=== PATIENT | male | born 1960 | race Caucasian/White ===

== ENCOUNTER 2020-04-23 15:19 | Outpatient (REF) | payer OTHER, SELFPAY | END 2020-04-23 15:20 | disposition home or self-care (01) | LOC: HO.SH 15:19 | PROVIDERS: PCP Internal Medicine; Referring Provider Internal Medicine; Visit Provider Internal Medicine | DX: Z13.89 Encounter for screening for other disorder (principal) | CPT/HCPCS: 92700 ==

== ENCOUNTER 2020-07-04 10:16 | Outpatient (REF) | payer OTHER, SELFPAY | END 2020-07-04 10:17 | disposition home or self-care (01) | LOC: HO.HAP 10:16 | PROVIDERS: Visit Provider Internal Medicine | DX: Z13.89 Encounter for screening for other disorder (principal) ==

== ENCOUNTER 2020-07-13 11:49 | Outpatient (REF) | payer OTHER, SELFPAY | END 2020-07-13 11:50 | disposition home or self-care (01) | LOC: HO.HAP 11:49 | PROVIDERS: Visit Provider Internal Medicine | DX: Z13.89 Encounter for screening for other disorder (principal) ==

== ENCOUNTER 2020-10-26 14:03 | Outpatient (REF) | payer OTHER, SELFPAY ==
--- NOTE | ~2020-10-26 | CT_ITS ---
EXAMINATION: CT ABDOMEN AND PELVIS WITHOUT CONTRAST CLINICAL INFORMATION: Diverticulitis COMPARISON: Previous CT scan of the abdomen and pelvis February 2013 TECHNIQUE: Multidetector volumetric imaging was performed from the superior aspect of the liver through the pubic symphysis. Sagittal and coronal reformatted images were obtained on the technologist's workstation. This CT examination was performed using dose optimization techniques as appropriate, variously including the following: *Automated exposure control *Adjustment of mA and/or kV according to patient size (this includes techniques or standardized protocols for targeted exams where dose is matched to indication/reason for exam; i.e. extremities or head) *Use of iterative reconstruction technique DLP: 471 mGy-cm FINDINGS: LUNG BASES: The visualized lung bases are unremarkable. LIVER, GALLBLADDER, AND BILIARY TREE: The liver is normal in size, shape, and attenuation. No focal hepatic lesion or biliary ductal dilatation is present. The gallbladder is unremarkable with no evidence of radiopaque gallstones, gallbladder wall thickening, or obvious pericholecystic inflammatory changes. PANCREAS: Unremarkable. SPLEEN: Unremarkable. ADRENAL GLANDS: Unremarkable. KIDNEYS AND URETERS: The kidneys are normal in size, shape, and attenuation. No hydronephrosis, hydroureter, or calculi seen. No perinephric stranding. BLADDER: Unremarkable. GASTROINTESTINAL TRACT: There is diverticulosis of the colon. No evidence of diverticulitis is seen. The small and large bowel is otherwise unremarkable. The appendix is unremarkable. ABDOMINAL WALL: There is a small umbilical hernia containing fat. LYMPH NODES: Normal. VASCULAR: Unremarkable. PELVIC VISCERA: Unremarkable. OSSEOUS STRUCTURES: There are degenerative changes of the spine. CT/CT abdomen pelvis wo con IMPRESSION: Diverticulosis. No evidence of diverticulitis.
[2020-10-26] MEDS: Barium Sulfate Oral (Berry) 450 ML ORAL.SUSP 900 ML PO (16:06)
== END 2020-10-26 14:04 | disposition home or self-care (01) ==
LOC: HO.CT 14:03
PROVIDERS: PCP Internal Medicine; Visit Provider Internal Medicine
DX: K57.92 Diverticulitis of intestine, part unspecified, without perforation or abscess without bleeding (principal)
CPT/HCPCS: 74176

== ENCOUNTER 2022-09-29 06:29 | Day surgery (SDC) | payer OTHER, SELFPAY ==
--- NOTE | 2022-09-26 12:28 | P.CONAN_ITS ---
Documented by User: Jolanta Denton NP 09/26/22 12:29 HPI - Anesthesia Eval Consult details Narrative: 62yo M for Upper Endoscopy and Colonoscopy [facility] Past Medical History Medical History Diverticulitis GERD (gastroesophageal reflux disease) History of ETT PAC (premature atrial contraction) Tremor Surgical History Surgical History H/O colonoscopy H/O esophagogastroduodenoscopy H/O shoulder surgery Social History Social History Patient Tobacco Use Status: Former Tobacco user Are you DNR?: No Advance Directives: No Advance Directives Information Provided: Yes Recently lost weight without trying: No Meds Allergies Allergy/AdvReac Type Severity Reaction Status Date / Time No Known Allergies Allergy Verified 09/26/22 12:29 Home Medications Medication Instructions Recorded Confirmed Last Taken Type bupropion HCl 150 mg 24 hr tablet, 150 mg PO QAM 09/26/22 09/26/22 09/28/22 History extended release cholecalciferol (vitamin D3) 25 25 mcg PO DAILY 09/26/22 09/26/22 09/28/22 History mcg (1,000 unit) tablet omeprazole 20 mg capsule,delayed 20 mg PO DAILY 09/26/22 09/26/22 09/28/22 History release propranolol 20 mg tablet 20 mg PO BID 09/26/22 09/26/22 09/28/22 History Exam Exam Date and Time: September 26, 2022 122 Assessment and Plan Assessment Anesthesia Assessment: Chart Reviewed Documented by User: Alma Delia Torres MD 09/29/22 07:51 [facility] Past Medical History Medical History Diverticulitis GERD (gastroesophageal reflux disease) History of ETT PAC (premature atrial contraction) Tremor Surgical History Surgical History H/O colonoscopy H/O esophagogastroduodenoscopy H/O shoulder surgery History of Problems with Anesthesia: No Social History Social History Patient Tobacco Use Status: Former Tobacco user Are you DNR?: No Advance Directives: No Advance Directives Information Provided: Yes Recently lost weight without trying: No Meds Allergies Allergy/AdvReac Type Severity Reaction Status Date / Time No Known Allergies Allergy Verified 09/26/22 12:29 Home Medications Medication Instructions Recorded Confirmed Last Taken Type bupropion HCl 150 mg 24 hr tablet, 150 mg PO QAM 09/26/22 09/26/22 09/28/22 History extended release cholecalciferol (vitamin D3) 25 25 mcg PO DAILY 09/26/22 09/26/22 09/28/22 History mcg (1,000 unit) tablet omeprazole 20 mg capsule,delayed 20 mg PO DAILY 09/26/22 09/26/22 09/28/22 History release propranolol 20 mg tablet 20 mg PO BID 09/26/22 09/26/22 09/28/22 History Exam Airway Mallampati Class: II TM Dist: >3cm Neck ROM: Full Loose/Missing/Broken Teeth: No Heart: RRR Lungs: CTA Assessment and Plan Assessment Anesthesia Assessment: Anesthesia Plan Discussed Final Anesthetic Review History of Problems with Anesthesia: No NPO: Yes ASA Class: II Final Preanesthetic Review: Meds/Allgs Chart Reviewed, Consent Obtained/Reviewed and Anes Risks/Benef Reviewed Patient Risk: Low Procedure Risk: Intermediate Anesthetic Plan Anesthetic Plan: MAC: Disposition: Standard PACU
[2022-09-29 06:35] VITALS: BMI 26.4
[2022-09-29 06:36] VITALS: BP 152/76; PULSE 66; RESP 18; TEMP 36.8; O2SAT 98
[2022-09-29] MEDS: Lactated Ringers 1,000 ML 100 ML IVCONT (07:00)
[2022-09-29 08:29] VITALS: BP 150/90; PULSE 80; RESP 16; TEMP 36.4; O2SAT 96
--- NOTE | 2022-09-29 08:30 | PM.OP ---
Brief Operative Note Date of Service: 09/29/22 Pre-op diagnosis: Bunn's, Screening Post-op diagnosis: other (Same, Hiatal hernia, Gastric polyp, Colon polyp) Procedure: EGD with biopsies, Colonoscopy to the cecum and TI with bx/removal of polyp Surgeon: Yogesh Schroeder Anesthesia: MAC Was an Supplier Quality Manager used for this Procedure?: No Estimated blood loss (mL): 2.0 Pathology: other (A. Esophagus 38-39cm B. Gastric antral polyp C. Transverse colon polyp) Condition: stable Disposition: PACU
[2022-09-29 08:45] VITALS: BP 142/86; PULSE 72; RESP 16; TEMP 36.4; O2SAT 98
--- NOTE | 2022-09-29 13:13 | OP_ITS ---
DATE OF SERVICE: 09/29/2022 SURGEON: Yogesh Schroeder MD INDICATIONS: The patient presents for evaluation of gastroesophageal reflux, Bunn's esophagus, and colorectal cancer screening. Full consent has been obtained from him for both procedures, including risks of bleeding and perforation. PREOPERATIVE DIAGNOSIS: POSTOPERATIVE DIAGNOSIS: PROCEDURE PERFORMED: Esophagogastroduodenoscopy with biopsies and colonoscopy to the cecum and terminal ileum with biopsy and removal of polyp. ESTIMATED BLOOD LOSS: COMPLICATIONS: ANESTHESIA: Monitored anesthesia care. ASSISTANTS: SPECIMENS: PREOPERATIVE DIAGNOSES: Gastroesophageal reflux, history of Bunn's esophagus, and colorectal cancer screening. POSTOPERATIVE DIAGNOSES: Gastroesophageal reflux, history of Bunn's esophagus, and colorectal cancer screening, small hiatal hernia, small gastric polyp, small colon polyp, diverticulosis, and internal hemorrhoids. DESCRIPTION OF PROCEDURE: The patient was placed in the left lateral decubitus position. The Olympus video gastroscope was passed in the posterior oropharynx and upper esophagus under direct vision. The scope was passed slowly to the distal esophagus. The gastroesophageal junction appeared at 39 cm. Extending from this to 38 cm were small, less than 10 mm patches of Bunn's-appearing mucosa. The EG junction appeared to be irregular as well. There was no evidence of any esophagitis, masses, ulceration, nor any other lesions. The scope entered the stomach. There was a small hiatal hernia. The scope was advanced to the pylorus, and the duodenum was cannulated to the descending portion. The duodenum including the bulb appeared normal without mass or ulceration. The scope was withdrawn back in the stomach. The gastric antrum and body appeared normal other than approximately 3 or 4 mm polyp in the gastric antrum that was biopsied and completely removed. There was good peristalsis. The scope was retroflexed visualizing the proximal stomach carefully, which appeared normal, without any sign of mass or ulceration. The scope was straightened and withdrawn back in the esophagus. Multiple biopsies were obtained between 38 cm and 39 cm. Proximal to this, the esophageal mucosa appeared normal. The scope was withdrawn from the patient. He was turned around for the colonoscopy. The digital rectal exam revealed no abnormalities. The Olympus video pediatric colonoscope was entered into the rectum and advanced easily to the cecum. Once in the cecum, I did identify normal-appearing cecal pouch with appendiceal orifice, and a normal appearing ileocecal valve. The terminal ileum was cannulated and appeared normal. The scope was withdrawn back in the colon. The entire cecum and ileocecal valve appeared normal. The scope was slowly withdrawn assessing all mucosal surface carefully. Preparation was excellent. In the transverse colon was an approximately 4 mm or 5 mm polyp, which was biopsied and completed removed with a cold biopsy forceps. I did not visualize any other polyps, colitis, nor angiodysplasia. There was a mild amount of sigmoid diverticulosis. There was a diverticulum in the cecum as well. In the rectum, the scope was retroflexed visualizing small internal hemorrhoids, but no other pathology. The rectal mucosa appeared normal. The scope was straightened and withdrawn from the patient. He tolerated the procedures well and was returned to the recovery area in stable condition. IMPRESSION: 1. History of Bunn's esophagus, small hiatal hernia. 2. Small gastric polyp. 3. Small colon polyp. 4. Diverticulosis. 5. Internal hemorrhoids. PLAN: The results of the biopsies will be checked. I would recommend a repeat upper endoscopy in 3 years assuming there is no dysplasia within the Bunn's mucosa. He will continue his daily omeprazole. If the colon polyp is a tubular adenoma, I would recommend a followup colonoscopy in 5 years. If it is only hyperplastic, I would recommend a followup colonoscopy in 10 years. He was advised not to use any aspirin or NSAIDs for 1 week. He will see me on a p.r.n. basis but will call if he has any recurrent problems with abdominal pain and/or diverticulitis. MD MEGAN Lowe/SIOBHAN / [phone] PIETER
== END 2022-09-29 09:05 | disposition home or self-care (01) ==
PROVIDERS: PCP Internal Medicine; Visit Provider Internal Medicine
PROC: (CPT 45380; principal; 2022-09-29 07:30)
DX: Z12.11 Encounter for screening for malignant neoplasm of colon (principal); K63.5 Polyp of colon; K57.30 Diverticulosis of large intestine without perforation or abscess without bleeding; K64.8 Other hemorrhoids; K22.70 Barrett's esophagus without dysplasia; K21.9 Gastro-esophageal reflux disease without esophagitis; K29.50 Unspecified chronic gastritis without bleeding; K31.7 Polyp of stomach and duodenum; K44.9 Diaphragmatic hernia without obstruction or gangrene; I49.1 Atrial premature depolarization; R25.1 Tremor, unspecified; Z79.899 Other long term (current) drug therapy; Z87.891 Personal history of nicotine dependence
CPT/HCPCS: 45380; 43239; 88305; 88342

== ENCOUNTER 2024-01-20 14:19 | Outpatient (AMB) | payer OTHER, SELFPAY ==
--- NOTE | 2024-01-20 14:21 | A.OFFVIS_ITS ---
Vital Signs 01/20/24 14:22 Height 6 ft Weight 200 lb BMI 27.1 Intake Visit Reasons: Inguinal hernia Intake Note: This patient presents for an assessment for inguinal hernia. Patient c/o; reports bulge, reports pain. Auricular Detoxification Specialist Required: No Accompanied by: Self / Same As Patient Allergies No Known Allergies Allergy (Verified 01/20/24 14:29) Medication List - Last Reconciled 01/20/24 by Wade Mcdaniels MD bupropion HCl XL 150 mg PO QAM cholecalciferol (vitamin D3) 25 mcg PO DAILY omeprazole 20 mg PO DAILY propranolol 20 mg PO BID HPI HPI Inguinal hernia: Details: 63-year-old male referred for a left inguinal hernia. He has noticed this redu cible mass on his left groin for about 5 years now. He says that often times this appears to be bigger especially when he has been standing up for long periods of time. This also reduce this on and off He describes discomfort with this over the years He denies any GI complaints. He says he is healthy overall. [facility] Medical History (Updated 01/20/24 @ 14:44 by Wade Mcdaniels MD) Left inguinal hernia History of ETT GERD (gastroesophageal reflux disease) Tremor PAC (premature atrial contraction) Diverticulitis Surgical History H/O shoulder surgery H/O esophagogastroduodenoscopy H/O colonoscopy Social History Patient Tobacco Use Status: Former Tobacco user Review of Systems Const Denies chills and Denies fever(s) Card Denies chest pain, Denies dyspnea and Denies dyspnea on exertion Resp Denies cough, Denies dyspnea and Denies dyspnea on exertion GI Denies hematochezia and Denies change in bowel habits Denies hematuria and Denies difficulty urinating Musc Denies back pain and Denies limited range of motion Neuro Denies focal weakness and Denies convulsions Psych Denies depression and Denies mood swings Physical Exam Vital Signs: BMI result Body Mass Index 27.1 Const General: comfortable and no acute distress Orientation/consciousness: patient oriented x3 Neck Neck: Yes no lymphadenopathy Resp Auscultation: clear to auscultation bilaterally Cardio Rhythm: regular rhythm GI Other: Left inguinal hernia, partially reducible, nontender Palpation (GI): Soft to palpation, nontender and no guarding Neuro General: patient oriented x3 Assessment & Plan Assessment & Plan (1) Left inguinal hernia: Code(s): K40.90 - Unilateral inguinal hernia, without obstruction or gangrene, not specified as recurrent Category: Medical Plan I reviewed with him the technique of repair of the inguinal hernia with mesh. I discussed the risks including but not limited to bleeding, infections, recur rence, injury to other organs including bowel and the vas deferens, postop pain, as well as the benefits and alternatives. I explained to him what to expect postoperatively. Coding Level of Care Code New Pt Level 3 (16281) Diagnoses Left inguinal hernia K40.90
[2024-01-20 14:22] VITALS: BMI 27.1
== END 2024-01-20 14:50 | disposition home or self-care (01) ==
PROVIDERS: PCP Internal Medicine; Visit Provider Surgery
DX: K40.90 Unilateral inguinal hernia, without obstruction or gangrene, not specified as recurrent (principal)
CPT/HCPCS: 99204

== ENCOUNTER → 2024-01-20 14:19 | Outpatient (BNVA) | payer OTHER, SELFPAY | PROVIDERS: PCP Internal Medicine; Visit Provider Surgery | DX: K40.90 Unilateral inguinal hernia, without obstruction or gangrene, not specified as recurrent (principal) | CPT/HCPCS: 99202 ==

== ENCOUNTER 2024-03-09 06:00 | Day surgery (SDC) | payer OTHER, SELFPAY ==
[2024-03-07 11:26] VITALS: BMI 27.1
--- NOTE | 2024-03-08 12:53 | HO.ANESPROP2 ---
HPI - Anesthesia Eval Consult details Narrative: 63yo M for Left Hernia Inguinal Reducible with mesh Medically opitimized per PCP [facility] Active Problems Active Problems: All Active Problems Left inguinal hernia (Acute) Past Medical History Medical History Left inguinal hernia History of ETT GERD (gastroesophageal reflux disease) Tremor PAC (premature atrial contraction) Diverticulitis Surgical History Surgical History H/O shoulder surgery H/O esophagogastroduodenoscopy H/O colonoscopy History of Problems with Anesthesia: No Social History Social History Comment: counts correct Patient Tobacco Use Status: Former Tobacco user Use of substances other than those prescribed or required for medical reasons: No Have you been hit, kicked, punched, or otherwise hurt by someone within the past year? If so, by whom?: No Are you DNR?: No Advance Directives: No Advance Directives Information Provided: Yes Recently lost weight without trying: No Nutrition Risks: No Nutritional Risk Poor oral hygiene: No Meds Allergies Allergy/AdvReac Type Severity Reaction Status Date / Time No Known Allergies Allergy Verified 03/09/24 06:13 Home Medications ?Medication ?Instructions ?Recorded ?Confirmed ?Last Taken ?Type cholecalciferol (vitamin D3) 25 25 mcg PO DAILY 09/26/22 03/09/24 03/08/24 History mcg (1,000 unit) tablet omeprazole 20 mg capsule,delayed 20 mg PO DAILY 09/26/22 03/09/24 03/09/24 History release Exam Height,Weight and Vital Signs: Height 6 ft Weight 90.718 kg Assessment and Plan Assessment Anesthesia Assessment: Chart Reviewed Final Anesthetic Review History of Problems with Anesthesia: No
[2024-03-09] VITALS (10 sets, daily range): BP systolic 151–178; BP diastolic 83–101; PULSE 79–92; RESP 16–18; TEMP 36.1–36.5; O2SAT 94–99; BMI 26.9
[2024-03-09] MEDS: Lactated Ringers 1,000 ML 100 ML IVCONT (06:37)
--- NOTE | 2024-03-09 07:20 | P.CONAN_ITS ---
[facility] Active Problems Active Problems: All Active Problems Left inguinal hernia (Acute) Past Medical History Medical History Left inguinal hernia History of ETT GERD (gastroesophageal reflux disease) Tremor PAC (premature atrial contraction) Diverticulitis Functional capacity: independent ambulation Family History Family history of problems with anesthesia: No Surgical History Surgical History H/O shoulder surgery H/O esophagogastroduodenoscopy H/O colonoscopy History of Problems with Anesthesia: No Social History Social History Patient Tobacco Use Status: Former Tobacco user Use of substances other than those prescribed or required for medical reasons: No Have you been hit, kicked, punched, or otherwise hurt by someone within the past year? If so, by whom?: No Are you DNR?: No Advance Directives: No Advance Directives Information Provided: Yes Recently lost weight without trying: No Nutrition Risks: No Nutritional Risk Poor oral hygiene: No Meds Allergies Allergy/AdvReac Type Severity Reaction Status Date / Time No Known Allergies Allergy Verified 03/09/24 06:13 Active Medications: Current Medications Lactated Ringer's (Lr) 1,000 mls @ 100 mls/hr IVCONT .Q10H JAIRO Last Admin: 03/09/24 06:37 Dose: 100 mls/hr Home Medications ?Medication ?Instructions ?Recorded ?Confirmed ?Last Taken ?Type cholecalciferol (vitamin D3) 25 25 mcg PO DAILY 09/26/22 03/09/24 03/08/24 History mcg (1,000 unit) tablet omeprazole 20 mg capsule,delayed 20 mg PO DAILY 09/26/22 03/09/24 03/09/24 History release Exam Height,Weight and Vital Signs: Height 6 ft Weight 89.811 kg Last Vital Signs Temp 97.0 F 03/09/24 06:36 Pulse 79 03/09/24 06:36 Resp 16 03/09/24 06:36 BP 151/97 H 03/09/24 06:36 Pulse Ox 96 03/09/24 06:36 O2 Del Method Room Air 03/09/24 06:36 Airway Mallampati Class: II TM Dist: >3cm Neck ROM: Full Heart: RRR Lungs: CTA Assessment and Plan Assessment Anesthesia Assessment: Anesthesia Plan Discussed Final Anesthetic Review Family History of Problems with Anesthesia: No History of Problems with Anesthesia: No NPO: Yes ASA Class: II Final Preanesthetic Review: Meds/Allgs Chart Reviewed, Consent Obtained/Reviewed and Anes Risks/Benef Reviewed Patient Risk: Low Procedure Risk: Low Anesthetic Plan Disposition: Standard PACU
--- NOTE | 2024-03-09 07:22 | MHC.SHP ---
Pre-Procedural Eval Section A - 24 Hr Update-Section A only Date of Service: 03/09/24 Section B - Complete if H&P > 30 days Chief Complaint: Unilateral inguinal hernia, without obstruction Details of Present Illness: Has a reducible left inguinal hernia for about 5 years Relevant Family History (Specify if Yes): No Relevant Social History: None Present Medications: see Short Stay Collaborative assessment Medical History: Significant History (GERD, history of PACs) Allergies: Allergies Allergy/AdvReac Type Severity Reaction Status Date / Time No Known Allergies Allergy Verified 03/09/24 06:13 Review of Systems Sugical H&P ROS: Negative: Constitution, Cardiovascular, Respiratory, Neurological, Psychiatric, Hem-Onc, Allergic/Immunologic, Gastrointestinal, Genitourinary, Musculoskeletal, Integumentary, Endocrine and Eyes/Ears/Nose/Throat Exam Surgical H&P Exam: Normal: Heart and Normal: Lungs and Significant Findings: Abdomen (Has reducible left inguinal hernia) Plan Diagnosis/Plan: Unchanged I have reviewed the history and physical and performed a pertinent physical examination on my patient. No changes have occurred unless specified. Time Spent With Patient Time: Total time managing care of this patient today ____ minutes.
--- NOTE | 2024-03-09 08:18 | W.PM.OPN ---
Operative Note Operative Note Date of Service: 03/09/24 Narrative: Preop diagnosis: Left inguinal hernia, reducible Postop diagnosis: Left inguinal hernia, reducible, indirect Procedure: Left inguinal hernia repair with mesh Surgeon: Wade Mcdaniels MD assistant real estate manager: ILA Bauer The patient is a 63-year-old male with a reducible mass on the left groin consistent with a left inguinal hernia. He understood the technique of the planned procedure for repair as well as the risks, benefits, and alternatives. He was brought to the operating room. He was placed supine under general anesthesia via laryngeal mask airway. The left groin was prepped and draped in the usual sterile fashion. A surgical time-out was done. The patient received cefazolin 2 g IV preoperatively I infiltrated my planned line of incision with lidocaine 1%. I made a short incision along an imaginary line from the anterior superior iliac spine to the pubic ramus using blade 15. This was carried down with electrocautery through the full-thickness of the skin and subcutaneous fat down to the fascia. The external oblique aponeurosis was seen. This was carefully and bluntly defined with gauze until was able to visualize the external ring. I made an incision on the external oblique aponeurosis overlying the canal with a blade 15. This was extended inferomedially to connect with the external ring using an open tip pair of scissors. I bluntly dissected the underside of the aponeurosis. I applied sterile on the divided edges. I did blunt dissection on the spermatic cord and its contents with my index finger until was able to pass a Bertha drain around this. This Bertha drain was used for retraction I identified the structures in the spermatic cord. I was able to identify the vas deferens and the accompanying vessels. This were then protected during the rest of the dissection. The sac was seen. This was dissected off of the rest of the cord contents until this was reduced through the internal ring. This was therefore an indirect hernia. There was no bowel involvement in the hernia I reinforced the internal ring with a medium-sized Prolene plug. The plug was secured to the shelving edge of the inguinal meant laterally and the internal oblique superiorly and medially using the inner leaves of the plug with Prolene 2 sutures. I reinforced the entire floor of the canal with a keyhole mesh. The tails of the mesh were passed around the cord at the level of the internal ring and were secured together with Prolene 2 sutures. The mesh was secured to the pubic ramus, the shelving edge of the inguinal meant laterally and the internal oblique superiorly medially using Prolene 2 sutures. The Bertha drain was removed We observed for hemostasis. Once hemostasis was confirmed, we irrigated. I closed the external oblique aponeurosis with a running Polysorb 2-0 stitch to re-create the external ring The thick subcutaneous layer was reapposed with Polysorb 3-0 sutures. Skin closure was achieved with Polysorb 4-0 subcuticular running stitch The incision was infiltrated with Marcaine 0.5% for postop analgesia. Dressings were applied. The procedure was completed The patient tolerated the procedure well. There were no immediate complications. Initial and final counts of sponges and instruments were correct. Estimated blood loss about 5 cc The patient was extubated without difficulty and transferred to the recovery room with stable vital signs.
--- NOTE | 2024-03-09 09:06 | HO.POSTANES ---
Post Anesthesia Evaluation Post Anesthesia Evaluation Date of Service: 03/09/24 Vital Signs: Vital Signs Temp Pulse Resp BP Pulse Ox O2 Del Method 03/09/24 08:54 85 16 155/94 H 94 Room Air 03/09/24 08:49 84 17 165/88 H 96 Room Air 03/09/24 08:44 89 16 160/83 H 96 Room Air 03/09/24 08:39 97.2 F 83 16 166/100 H 94 Room Air 03/09/24 06:36 97.0 F 79 16 151/97 H 96 Room Air Anesthesia: General LMA Mental Status: Awake Pain Control: Satisfactory Nausea/Vomiting: None Hydration: Adequate Anesthesia-Related Issues: No Anes. Related Issues
[2024-03-09] MEDS: ondansetron HCL 4 MG/2 ML VIAL IVPUSH (09:38)
[2024-03-09] MEDS: Haloperidol Lactate 5 MG/ML VIAL 1 MG IVPUSH (10:13)
== END 2024-03-09 11:00 | disposition home or self-care (01) ==
PROVIDERS: PCP Internal Medicine; Visit Provider Surgery
PROC: (CPT 49505; principal; 2024-03-09 07:30)
DX: K40.90 Unilateral inguinal hernia, without obstruction or gangrene, not specified as recurrent (principal); K21.9 Gastro-esophageal reflux disease without esophagitis; Z87.19 Personal history of other diseases of the digestive system; R25.1 Tremor, unspecified; I49.1 Atrial premature depolarization; Z79.899 Other long term (current) drug therapy; Z87.891 Personal history of nicotine dependence; Z98.890 Other specified postprocedural states
CPT/HCPCS: 49505; C1781; J0690; J1100; J1630; J2250; J2405; J2704; J2795; J3010

== ENCOUNTER → 2024-03-09 06:00 | Outpatient (BNV) | payer OTHER, SELFPAY | PROVIDERS: PCP Internal Medicine; Visit Provider Surgery | DX: K40.90 Unilateral inguinal hernia, without obstruction or gangrene, not specified as recurrent (principal) | CPT/HCPCS: 49505 ==

== ENCOUNTER 2024-03-21 14:27 | Outpatient (AMB) | payer OTHER, SELFPAY ==
--- NOTE | 2024-03-21 14:53 | MHC.OFFVIS ---
Intake Visit Reasons: S/P LIH w/mesh Intake Note: This patient presents for post-op assessment status post left inguinal hernia repair with mesh. Pt c/o; reports no complaints. 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 He tolerated procedure well. He currently denies significant complaints. PFSH Medical History Left inguinal hernia History of ETT GERD (gastroesophageal reflux disease) Tremor PAC (premature atrial contraction) Diverticulitis Surgical History H/O shoulder surgery H/O esophagogastroduodenoscopy H/O colonoscopy Social History Comment: counts correct Patient Tobacco Use Status: Former Tobacco user Review of Systems Const Denies chills and Denies fever(s) Card Denies chest pain, Denies dyspnea and Denies dyspnea on exertion Resp Denies cough, Denies dyspnea and Denies dyspnea on exertion GI Denies hematochezia and Denies change in bowel habits Denies hematuria and Denies difficulty urinating Musc Denies back pain and Denies limited range of motion Neuro Denies focal weakness and Denies convulsions Psych Denies depression and Denies mood swings Physical Exam Const General: comfortable and no acute distress Resp Effort & Inspection: normal respiratory effort GI Other: Left inguinal hernia repair site is well healed, not infected, repair intact Assessment & Plan Assessment & Plan (1) Left inguinal hernia: Code(s): K40.90 - Unilateral inguinal hernia, without obstruction or gangrene, not specified as recurrent Category: Medical Plan: Status post repair with mesh. He is doing well. His incision is well healed. The repair site is intact. I advised him to avoid lifting anything more than 20 lb for about 2 more weeks. He can otherwise follow up on a p.r.n. basis. Coding Level of Care Code Global (17215) Diagnoses Left inguinal hernia K40.90
== END 2024-03-21 15:09 | disposition home or self-care (01) ==
PROVIDERS: PCP Internal Medicine; Visit Provider Surgery
DX: K40.90 Unilateral inguinal hernia, without obstruction or gangrene, not specified as recurrent (principal)
CPT/HCPCS: 99024

== ENCOUNTER → 2024-03-21 14:27 | Outpatient (BNVA) | payer OTHER, SELFPAY | PROVIDERS: PCP Internal Medicine; Visit Provider Surgery | DX: Z48.815 Encounter for surgical aftercare following surgery on the digestive system (principal); Z87.19 Personal history of other diseases of the digestive system; Z98.890 Other specified postprocedural states | CPT/HCPCS: 99212 ==

== ENCOUNTER 2024-06-02 10:47 | Outpatient (AMB) | payer OTHER, SELFPAY ==
--- NOTE | 2024-06-02 10:48 | MHC.OFFVIS ---
Vital Signs 06/02/24 10:52 Height 6 ft Weight 199 lb BMI 27.0 Intake Visit Reasons: wound check, Hx LIH repair Intake Note: This patient presents for wound check, History left inguinal hernia repair. Pt c/o; reports wound check. Social Science Manager Required: No Accompanied by: Self / Same As Patient Allergies No Known Allergies Allergy (Verified 06/02/24 10:53) Medication List - Last Reconciled 06/02/24 by Wade Mcdaniels MD cholecalciferol (vitamin D3) 25 mcg PO DAILY omeprazole 20 mg PO DAILY oxycodone-acetaminophen 5-325 mg (Percocet) 1 tab PO Q4-6H PRN HPI HPI wound check, Hx LIH repair: Details: He had undergone repair of a left inguinal hernia with mesh last February,. He had been doing well. However, he had noted some discoloration of part of the scar and he wanted this checked. He otherwise feels well. He denies any complaints. He says he is happy with the outcome. [facility] Medical History (Updated 06/02/24 @ 11:01 by Wade Mcdaniels MD) Scar conditions/skin fibrosis Left inguinal hernia History of ETT GERD (gastroesophageal reflux disease) Tremor PAC (premature atrial contraction) Diverticulitis Surgical History H/O shoulder surgery H/O esophagogastroduodenoscopy H/O colonoscopy Social History Comment: counts correct Patient Tobacco Use Status: Former Tobacco user Review of Systems Const Denies chills and Denies fever(s) Card Denies chest pain at rest GI Denies abdominal pain Denies difficulty urinating Physical Exam Vital Signs: BMI result Body Mass Index 27.0 Const General: comfortable and no acute distress Resp Effort & Inspection: normal respiratory effort GI Other: Left inguinal hernia repair site well healed, some dark discoloration on the lateral area of the incision resembling scar tissue, repair site however intact, no evidence of any infection Palpation (GI): Soft to palpation, not firm and nontender Assessment & Plan Assessment & Plan (1) Scar conditions/skin fibrosis: Code(s): L90.5 - Scar conditions and fibrosis of skin Category: Medical Plan: He wanted the area of discoloration on the hernia repair site checked. This appears to be a scar formation. I assured him that this does not represent any significant pathology. The repair site is otherwise intact. He can therefore follow up on a p.r.n. basis. Coding Level of Care Code Est Pt Level 2 (07085) Diagnoses Scar conditions/skin fibrosis L90.5
[2024-06-02 10:52] VITALS: BMI 27.0
--- OUTSIDE RECORDS SUMMARY | 2024-06-08 01:43 | XMS_ITS ---
Author Organization Yogesh Roberts DO, FACP Address [address] [place] [address] [phone] Care Team Providers Care Agency Development Manager Name Role Phone Yogesh Roberts Primary Care Provider [phone] ALLERGIES No Known Allergies REASON FOR VISIT pre-op, cataract OS MEDICATIONS Medication SIG (Take, Route, Frequency, Duration) Notes Start Date End Date Status Omeprazole 20 MG 1 capsule 30 minutes before morning meal Orally Once a day Active Propranolol HCl 20 MG 1 tablet as needed Orally Once a day Active Meloxicam 15 MG 1 tablet as needed O rally Once a day Active Viagra 50 MG 1 tablet as needed O rally Once a day 12/09/2015 Active Vitamin D3 25 MCG (1000 UT) 1 tablet Ora lly Once a day Active LORazepam 1 MG 1 tablet as needed O rally Twice a day 10/25/2022 Active SOCIAL HISTORY Tobacco Use: Social History Observation Description Date Details (start date - stop date) Never Smoker NA - NA Sex Assigned At : Social History Observation Description Sex Assigned At Unknown Tobacco Use/Smoking Question Answer Notes Patient is a nonsmoker Additional Findings: Tobacco Non-User Cu rrent non-smoker, currently using no form of tobacco Alcohol Screen Question Answer Notes Did you have a drink contain ing alcohol in the past year? Yes How often did you have a dri nk containing alcohol in the past year? 2 to 3 times a week (3 points) How many drinks did you have on a typical day when you were drinking in the past year? 1 or 2 drinks (0 point) How often did you have 6 or more drinks on one occasion in the past year? Never (0 point) Points 3 Interpretation Negative PROBLEMS Problem Type ICD Code Onset Dates Problem Status W/U Status Risk SNOMED Code Notes Problem Cataract of left eye, unspecified cataract type (H26.9) Active confirmed 339071887 VITAL SIGNS BMI 26.99 kg/m2 05/17/2024 Blood pressure systolic 144 mm Hg 05/17/20 24 Blood pressure diastolic 80 mm Hg 024 Height 72 in 05/17/2024 Weight 199 lbs 05/17/2024 Encounters Encounter Location Date Provider Diagnosis Yogesh Roberts , FACP [address] [place] [address] [id number] 05/17/2024 Yogesh Roberts Cataract of left eye , unspecified cataract type H26.9 ; 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 ; Tremor R25.1 and Diverticulosis of large intestine without hemorrhage K57.30 ASSESSMENTS Encounter Date Diagnosis Assessment Notes Treatment Notes Treatment Clinical Notes 05/17/2024 Cataract of left eye , unspecified cataract type (ICD-10 - H26.9) Yamilka is an appropriate candidate for the proposed surgical procedure and is medically cleared for surgery 05/17/2024 Bunn's esophagus without dysplasia (ICD-10 - K22.70) 05/17/2024 Tremor (ICD-10 - R25.1) 05/17/2024 Diverticulosis of large intestine without hemorrhage (ICD-10 - K57.30) PLAN OF TREATMENT Medication Medication Name Sig Start Date Stop Date Notes Omeprazole 20 MG 1 capsule 30 minutes before morning meal Orally Once a day Propranolol HCl 20 MG 1 tablet as needed Orally Once a day Meloxicam 15 MG 1 tablet as needed O rally Once a day Viagra 50 MG 1 tablet as needed O rally Once a day 12/09/2015 Vitamin D3 25 MCG (1000 UT) 1 tablet Orally Once a day LORazepam 1 MG 1 tablet as needed O rally Twice a day 10/25/2022 Treatment Notes Assessment Notes Cataract of left eye, unspec ified cataract type Yamilka is an appropriate candidate for the proposed surgical procedure and is medically cleared for surgery Next Appt Details Follow Up: 6 Months, Reason: H&P Provider Name:Yogesh Gutierrez elizabeth, 11/15/2024 11:15:00 AM, [address] [place] [address], [phone], Progress Notes * Examination Category Sub-Category Detail Notes General Examination GENERAL APPEARANCE: in no ac tejon distress, well developed, well nourished HEAD: normocephalic, atrau matic HEART: no murmurs, regular rate and rhythm, S1, S2 normal LUNGS: clear to auscultatio n bilaterally ABDOMEN: normal, bowel sounds present, soft, nontender, nondistended SKIN: warm and dry EXTREMITIES: no edema PSYCH: alert, oriented, cog nitive function intact
--- OUTSIDE RECORDS SUMMARY | 2024-06-08 01:44 | XMS_ITS ---
Author Organization Yogesh Roberts DO, FACP Address [address] [place] [address] [phone] Care Team Providers Care Certified Dialysis Technician Name Role Phone Yogesh Roberts Primary Care Provider [phone] REASON FOR VISIT Message Encounters Encounter Location Date Provider Diagnosis Yogesh Roberts DO, [facility] [address] [place] [address] [id number] 02/02/2024 Yogesh Roberts PLAN OF TREATMENT Next Appt Details Provider Name:Yogesh johnson, 11/15/2024 11:15:00 AM, [address] [place] [address], [phone],
--- OUTSIDE RECORDS SUMMARY | 2024-06-08 01:44 | XMS_ITS ---
Author Organization Yogesh Roberts DO, FACP Address [address] [place] [address] [phone] Care Team Providers Care Park Interpretive Specialist Name Role Phone Yogesh Roberts Primary Care Provider [phone] REASON FOR VISIT Pre op physical Encounters Encounter Location Date Provider Diagnosis Yogesh Roberts DO, FACP [address] [place] [address] [id number] 04/21/2024 Yogesh Roberts PLAN OF TREATMENT Next Appt Details Provider Name:Yogesh johnson, 11/15/2024 11:15:00 AM, [address] [place] [address], [id number],
--- OUTSIDE RECORDS SUMMARY | 2024-06-08 01:44 | XMS_ITS | Patient Health Record ---
Author Organization [facility] Address [address] [place] [phone] Care Team Providers Care Supervisor Melt House Name Role Phone Yogesh Berg DO Primary Care Provider Unavail able Yogesh Schroeder Unavailable [phone] ALLERGIES No Known Allergies REASON FOR REFERRAL No Information MEDICATIONS Medication SIG (Take, Route, Frequency, Duration) Notes Start Date End Date Status Vitamin D3 25 MCG (1000 UT) 1 capsule Or ally Once a day Active Propranolol HCl 20 MG 1 tablet Orally On ce a day Active Omeprazole 20 MG 1 capsule 30 minutes before morning meal Orally Once a day 06/08/2020 Active IMMUNIZATIONS Vaccine Route Administration Date Status Comme nts Influenza Unknown 03/30/2019 Administered Influenza Unknown 05/09/2020 Administered Influenza Unknown 03/29/2022 Administered SOCIAL HISTORY Tobacco Use: Social History Observation Description Date Details (start date - stop date) Former Smoker NA - NA Sex Assigned At : Social History Observation Description Sex Assigned At Unknown Tobacco Use/Smoking Question Answer Notes Patient is a former smoker When did you start smoking? 15 years ago When did you stop smoking? 35 year ago How long has it been since y ou last smoked? 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 (55494365) Problem Diverticulosis of large intestine without perforation or abscess without bleeding (K57.30) Active confirmed Diverticul ar disease of colon (299263910) Problem Gastroesophageal reflux disease (K21.9) Active confirmed Gastroesophagea l reflux disease (125473160) Problem Gastroesophageal reflux disease without esophagitis (K21.9) Active confirmed 424640264 Problem Gastroesophageal reflux disease, esophagitis presence not specified (K21.9) Active confirmed 799022422 Problem Hiatal hernia (K44.9) Active confirmed Hiatal hernia (94310737) Problem Bunn esophagus (K22.70) Active confirmed Bunn esophag us (573575991) PLAN OF TREATMENT Pending Test Test Name Order Date US ABD 03/13/2020 Future Test Test Name Order Date COLONOSCOPY 03/24/2013 UPPER GI ENDOSCOPY 03/13/2020 UPPER GI ENDOSCOPY 08/05/2022 COLONOSCOPY 08/05/2022 Insurance Providers Payer Name Payer Address Payer Phone Subscriber Number Group Number Insured Name Patient Relationship to Insured Coverage [place] [address] [id number] NAOMI HOLLEY Self - patient is the insured MEDICAL (GENERAL) HISTORY Medical History History ICD Code Denies LA,DM,CVA,Lung disease,renal dise ase Diverticulitis-episodes bega n 2006-has had at least 4 or 5 episodes per his recollection-he has not required hospitalization nor surgery. His last CT scan of the abdomen was in 2020 and was negative for any sign of diverticulitis at that time Colonoscopy 06/[address] Johnson neg except for diverticulosis PAC - Benign Heart Rythmn Negative colonoscopy in 03/2013 Tremor Having an ETT in 06/2020 GERD--EGD in 02/2020 with a s mall hiatal hernia and small area of Bunn's esophagus--biopsies were negative for dysplasia; gastric biopsies were negative for H. pylori Neg abdominal ultrasound in 02/2020 Surgical History Surgery Date(Month/Year) Left Shoulder surgery x 2 01/24/2020
--- OUTSIDE RECORDS SUMMARY | 2024-06-08 01:44 | XMS_ITS | Patient Health Record ---
Author Organization Yogesh Roberts DO, FACP Address [address] [place] [address] [phone] Care Team Providers Care Continuous Churn Buttermaker Name Role Phone Yogesh Roberts Primary Care Provider [phone] ALLERGIES No Known Allergies REASON FOR REFERRAL Reason Left inguinal hernia Diagnosis 1 Left inguinal hernia (K40.90) Referral Organization Yogesh Keating O, FACP Referring Provider First Name Yogesh Referring Provider Last Name Armando Referring Provider Speciality Internal M edicine Referred Provider Wade Mcdaniels Referred Provider Specialty General Surg titi Referral Priority Routine Referral Appointment Date 01/14/2024 MEDICATIONS Medication SIG (Take, Route, Frequency, Duration) Notes Start Date End Date Status LORazepam 1 MG 1 tablet as needed O rally Twice a day 10/25/2022 Active Omeprazole 20 MG 1 capsule 30 [...] tablet Ora lly Once a day Active IMMUNIZATIONS Vaccine Route Administration Date Status Comme nts Td (adult) Unknown 04/22/2006 Administered Influenza Unknown 03/13/2014 Administered Influenza Quad IM Intramuscular 03/14/2015 Administered TDaP Unknown 07/05/2015 Administered Influenza Quad IM Intramuscular 03/28/2016 Administered Influenza Quad IM Intramuscular 04/02/2017 Administered Influenza Quad IM Intramuscular 04/13/2018 Administered COVID-19 Moderna Bivalent Unknown 04/15/2022 Administer ed Influenza Quad Unknown 04/15/2022 Administered Influenza Quad Unknown 04/02/2023 Administered SOCIAL HISTORY Tobacco Use: Social History [...] W/U Status Risk SNOMED Code Notes Problem Bunn's esophagus without dysplasia (K22.70) Active confirmed 901383909 Problem Diverticulosis of large intestine without hemorrhage (K57.30) Active confirmed 806657525 Problem SVT (supraventricular tachycardia) (I47.1) Active confirmed 3929351 Problem Gastroesophageal reflux disease, esophagitis presence not specified (K21.9) Active confirmed 178467675 Problem Tremor (R25.1) Active confirmed 1600742 4 Problem Hearing loss, bilateral (H91.93) Active confirmed 89107350 Problem Cataract of left eye, unspecified cataract type (H26.9) Active confirmed 448135985 Problem Allergic rhinitis, unspecified seasonality, unspecified trigger (J30.9) Active confirmed 75693844 Problem Diverticulitis (K57.92) Active confirmed 747197659 Problem Leukocytosis, unspecified (D72.829) Active confirmed 314463278 VITAL SIGNS Blood pressure diastolic 80 mm Hg 05/17/2024 Height 72 in 05/17/2024 Blood pressure systolic 144 mm Hg 05/17/2024 Weight 199 lbs 05/17/2024 BMI 26.99 kg/m2 05/17/2024 Encounters Encounter Location Date Provider Diagnosis Yogesh Roberts DO, FACP [address] [place] [address] [id number] 05/17/2024 Yogesh Roberts Cataract of left eye , unspecified cataract type H26.9 ; 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 ; Tremor R25.1 and Diverticulosis of large intestine without hemorrhage K57.30 Yogesh Roberts DO, FACP [address] [place] [address] [id number] 11/13/2023 Yogesh Roberts DO, [address] [id number] 12/05/2023 Yogesh Roberts DO, [address] [id number] 02/02/2024 Yogesh Roberts DO, [address] [id number] 09/29/2023 Yogesh Roberts Bronchitis J40 ; Jayro mor R25.1 ; 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 ; Pain in right shoulder M25.511 and Diverticulosis of large intestine without hemorrhage K57.30 Yogesh Roberts DO, [address] [id number] 01/05/2024 Yogesh Roberts Left inguinal hernia K40.90 ; Gastroesophageal reflux disease, esophagitis presence not specified K21.9 ; Diverticulosis of large intestine without hemorrhage K57.30 and Prostate cancer screening Z12.5 Yogesh Roberts DO, [address] [id number] 06/22/2023 Yogesh Roberts DO, [address] [id number] 11/12/2023 Yogesh Roberts DO, [address] [id number] 12/31/2023 Yogesh Roberts DO, [address] [id number] 01/04/2024 Yogesh Roberts DO, [address] [id number] 01/27/2024 Yogesh Roberts Leukocytosis, unspecified D72.829 Yogesh Roberts DO, [address] [id number] 04/21/2024 Yogesh Roberts ASSESSMENTS Encounter Date Diagnosis Assessment Notes Treatment Notes Treatment Clinical Notes 05/17/2024 Bunn's esophagus without dysplasia (ICD-10 - K22.70) 05/17/2024 Cataract of left eye , unspecified cataract type (ICD-10 - H26.9) Aymilka is an appropriate candidate for the proposed surgical procedure and is medically cleared for surgery 09/29/2023 Bronchitis (ICD-10 - J40) 09/29/2023 Tremor (ICD-10 - R25.1) 01/05/2024 Left inguinal hernia (ICD-10 - K40.90) 01/05/2024 Gastroesophageal reflux disease, esophagitis presence not specified (ICD-10 - K21.9) 01/27/2024 Leukocytosis, unspecified (ICD-10 - D72.829) 05/17/2024 Tremor (ICD-10 - R25.1) 09/29/2023 Bunn's esophagus without dysplasia (ICD-10 - K22.70) 01/05/2024 Diverticulosis of large intestine without hemorrhage (ICD-10 - K57.30) 05/17/2024 Diverticulosis of large intestine without hemorrhage (ICD-10 - K57.30) 09/29/2023 Pain in right should er (ICD-10 - M25.511) 01/05/2024 Prostate cancer screening (ICD-10 - Z12.5) 09/29/2023 Diverticulosis of large intestine without hemorrhage (ICD-10 - K57.30) PLAN OF TREATMENT Next Appt Details Provider Name:Yogesh johnson, 11/15/2024 11:15:00 AM, [address] [place] [address], [phone], Insurance Providers Payer Name Payer Address Payer Phone Subscriber Number Group Number Insured Name Patient Relationship to Insured Coverage Start Date Coverage End Date [facility] [address] [place] [phone] [id number] [facility] [id number] Mario Cat Self - patient is the insured MEDICAL (GENERAL) HISTORY Medical History History ICD Code diverticulosis diverticulitis renal lithiasis gastroesophageal reflux disease (GERD) SVT (supraventricular tachycardia) I47.1 Allergic rhinitis, unspecified seasonali ty, unspecified trigger J30.9 Tremor R25.1 Gastroesophageal reflux disease, esophag itis presence not specified K21.9 Bunn's esophagus Surgical History Surgery Date(Month/Year) tonsillectomy vasectomy shoulder arthroscopy, left herniorraphy, left inguinal 02/2024
--- OUTSIDE RECORDS SUMMARY | 2024-06-08 01:44 | XMS_ITS ---
Author Organization [facility] Address [address] [place] [phone] Care Team Providers Care Brim Pouncer Name Role Phone Yogesh Roberts DO Primary Care Provider Unavail able Yogesh Schroeder Unavailable [phone] REASON FOR VISIT recalls? Encounters Encounter Location Date Provider Diagnosis [facility] [address] [place] [phone] 02/26/2023 Yogesh Schroeder PLAN OF TREATMENT No Information
== END 2024-06-02 10:55 | disposition home or self-care (01) ==
PROVIDERS: PCP Internal Medicine; Visit Provider Surgery
DX: L90.5 Scar conditions and fibrosis of skin (principal)
CPT/HCPCS: 99024

== ENCOUNTER → 2024-06-02 10:47 | Outpatient (BNVA) | payer OTHER, SELFPAY | PROVIDERS: PCP Internal Medicine; Visit Provider Surgery | DX: Z09 Encounter for follow-up examination after completed treatment for conditions other than malignant neoplasm (principal); L90.5 Scar conditions and fibrosis of skin; Z98.890 Other specified postprocedural states | CPT/HCPCS: 99212 ==

== ENCOUNTER 2024-11-15 11:18 | Outpatient (AMB) | payer OTHER, SELFPAY ==
--- NOTE | 2024-11-15 11:28 | MHC.PC.OV ---
Vital Signs 11/15/24 11:29 Height 6 ft Weight 208 lb BMI 28.2 BP 146/71 H Respiration 14 Pulse Source Pulse Oximeter Temp 98.5 F Temp Source Temporal Artery Scan Pulse Oximetry (%) 99 Oxygen Delivery Method Room Air Intake Visit Reasons: physical Manager Income Tax Required: No Accompanied by: Self / Same As Patient Allergies No Known Allergies Allergy (Verified 11/15/24 13:07) Medication List - Last Reconciled 11/15/24 by Kaden Roth MD apixaban (Eliquis) 5 mg PO BID cholecalciferol (vitamin D3) 25 mcg PO DAILY metoprolol succinate ER mg PO omeprazole 20 mg PO DAILY 90 days Tobacco use date assessed: 11/15/24 Dental Screening Dental Screen Date: 11/15/24 Did you have a dental visit in the last 12 months?: Yes Did you have a dental problem in the last 6 months where you did not have access to dental care?: No Was dental information given to patient?: Patient has dentist [facility] Medical History (Updated 11/15/24 @ 13:08 by aKden Roth MD) Atrial fibrillation Scar conditions/skin fibrosis Left inguinal hernia History of ETT GERD (gastroesophageal reflux disease) Tremor PAC (premature atrial contraction) Diverticulitis Surgical History H/O shoulder surgery H/O esophagogastroduodenoscopy H/O colonoscopy (~09/29/22) Family History Father AD (Alzheimer's disease) Mother Heart problem Brother Stroke Social History Housing: House Alcohol intake: current Alcohol intake frequency: a few times a week Patient Tobacco Use Status: Former Tobacco user service: No Current occupational status: employed Cognitive needs: No Hearing needs: Yes (b/l hearing aids) Vision needs: Yes (rx glasses) Questionnaire PHQ-9 Over the last 2 weeks, how often have you been bothered by any of the following problems? 1. Little interest or pleasure in doing things: not at all 2. Feeling down, depressed, or hopeless: not at all 3. Trouble falling or staying asleep, or sleeping too much: not at all 4. Feeling tired or having little energy: not at all 5. Poor appetite or overeating: not at all 6. Feeling bad about yourself - or that you are a failure or have let yourself or your family down: not at all 7. Trouble concentrating on things, such as reading the newspaper or watching television: not at all 8. Moving or speaking so slowly that other people could have noticed. Or the opposite - being so fidgety or restless that you have been moving around a lot more than usual: not at all 9. Thoughts that you would be better off or of hurting yourself in some way: not at all Total score: 0 Depression Screening Interpretation: Negative Depression Screening Done: Yes Source: Developed by Drs. Yogesh Metzger, Ashley Vega, Rhett Daniel and colleagues, with an educational steven from [employer]. Thrive Questionnaire Date Thrive assessed: 11/15/24 I am a: Patient What is your living situation today?: I have a steady place to live Within the past 12 months, did the food you bought not last and you didn't have the money to get more?: Never true Within the past 12 months, did you worry whether your food would run out before you got money to buy more?: Never true Do you have trouble paying for medicines?: No Do you have trouble getting transportation to medical appointments?: No Do you have trouble paying your heating and electricity bill?: No Do you have trouble taking care of your child, family member or friend?: No Do you have trouble with day-to-day activities such as bathing, preparing meals, shopping, managing finances, etc.?: No Are you currently unemployed and looking for a job?: No Are you interested in more education?: No Please select the resources that you would like help with: None Currently or been in a relationship where the following occur: No concerns reported THRIVE Score: 0 AUDIT C Alcohol Use Questionnaire (AUDIT-C) 1. How often do you have a drink containing alcohol?: 2-3 times a week 2. How many drinks containing alcohol do you have on a typical day when you are drinking?: 1 or 2 3. How often do you have six or more drinks on one occasion?: Never Total Score: 3 CARLO-7 AMB Questionnaire CARLO-7 Date CARLO - 7 assessed: 11/15/24 Feeling nervous, anxious, or on edge: 0 = Not at all Not being able to stop or control worryin = Not at all Worrying too much about different things: 0 = Not at all Trouble relaxin = Not at all Being so restless that it is hard to sit still: 0 = Not at all Becoming easily annoyed or irritable: 0 = Not at all Feeling afraid as if something awful might happen: 0 = Not at all Total CARLO-7 score (0-4 normal; 5-9 mild; 10-14 moderate; 15-21 severe): 0 Source: Developed by Drs. Yogesh Metzger, Ashley Vega, Rhett Daniel and colleagues, with an educational steven from [employer]. Physical exam (Primary Care) Vital Signs: Last Vital Signs Temp 98.5 F 11/15/24 11:29 Resp 14 11/15/24 11:29 BP 146/71 H 11/15/24 11:29 Pulse Ox 99 11/15/24 11:29 Oxygen Delivery Method Room Air 11/15/24 11:29 Care Plan Goal for BP management: BP in range BMI result Body Mass Index 28.2 Tobacco/Smoking Status: Tobacco use Status Tobacco use date assessed 11/15/24 11/15/24 11:38 Patient Tobacco Use Status Former Tobacco user 11/15/24 11:38 PHQ-9: PHQ-9 Score PHQ-9: Total score 0 11/15/24 11:38 Depression Screening Interpretation: Negative Thrive Assessment: Date of Thrive Assessment Date Thrive assessed 11/15/24 11/15/24 11:38 Currently or been in a relationship where the following occur: No concerns reported Advance Care Planning discussion: Exists, not on file Date of discussion: 11/15/24 Who was present: patient Forms completed: Health Care Proxy Time spent: 1-15 minutes, not on file Actual minutes spent: 5 Coding Level of Care Code New Pt Prev Care 40-64y(25404) Diagnoses Atrial fibrillation I48.91 Additional Codes Vital Signs *Quality* - Advance Care Planning discussion: Exists, not on file ([id number]) Vital Signs *Quality* - Time spent: 1-15 minutes, not on file ([id number]) Assessment & Plan Assessment & Plan (1) Atrial fibrillation: Code(s): I48.91 - Unspecified atrial fibrillation Category: Medical Plan: Sees [employer] in [place]. Continue anticoagulants and meds for rate control. Plan History of Present Illness The patient is a 64-year-old male presenting for a meet and greet in the context of a physical examination. He has a history of atrial fibrillation, initially identified during a hospitalization at [facility] in July. He currently follows up with a model photographers', Dr. Wells, in [place] for ongoing management with blood thinners. Furthermore, the patient reports gastroesophageal reflux disease, which is being managed with omeprazole and vitamin D supplements. He has a post-surgical shoulder condition and continues care with orthopedic specialists. The patient also relayed a diagnosis of Peyronie's disease, for which plication surgery is planned in February. The patient has no additional acute medical complaints at this time. Social History - Self-employed as a musician - Instruments played: [employer] and [employer] - Alcohol use: Consumes a couple of drinks per week - Smoker: Denies smoking Review of Systems - Cardiovascular: Reports history of atrial fibrillation - Gastrointestinal: Reports gastroesophageal reflux disease - Musculoskeletal: Reports history of shoulder surgery - Genitourinary: Reports Peyronie's disease - Neurological: Denies any new symptoms - General: Denies new health concerns Physical Exam General: Cooperative and healthy appearing Nutritional Appearance: Well nourished Orientation/consciousness: Patient oriented x3 Limitations: No limitations Head: Normal to inspection General: Appearance normal, both eyes and all related structures Neck: Normal visual inspection Chest: Normal palpation of entire chest wall Respiratory: Normal respiratory effort Neurology: Patient oriented x3 Results Plan 1. Atrial Fibrillation - Continue cardiology follow-up and current medication regimen 2. Gastroesophageal Reflux Disease - Maintain omeprazole use 3. Peyronie's Disease - Proceed with planned surgery in February 4. Post-Surgical Shoulder Condition - Orthopedic care to continue as needed Discussion Notes During today's visit, I introduced myself to the patient and confirmed the purpose of the meeting as a preliminary get-to-know session for subsequent care. We discussed the patient's history of atrial fibrillation and the ongoing care he receives from his model photographers', including a blood thinner regimen. I acknowledged the patient's management of gastroesophageal reflux disease with omeprazole and was informed of upcoming surgical planning for his Peyronie's disease. We also reviewed social habits, such as moderate alcohol consumption, and denied any new or pressing health concerns. I concluded the session by affirming the understanding of the patient's current health status and plans for continuous management of chronic conditions. Patient Instructions - Continue taking your prescribed medications for AFib and GERD as directed. - Follow up with your model photographers' regularly. - Adhere to the plan for plication surgery for Peyronie's disease in February. - If new symptoms develop, please seek medical attention. - Continue moderation in alcohol consumption. Orders: Orders Basic Metabolic Panel Today K21.9 - Gastro-esophageal reflux disease without esophagitis Lipid Panel Today K21.9 - Gastro-esophageal reflux disease without esophagitis Thyroid Stimulating Hormone Today K21.9 - Gastro-esophageal reflux disease without esophagitis Complete Blood Count no Diff Today K21.9 - Gastro-esophageal reflux disease without esophagitis Liver Panel Today K21.9 - Gastro-esophageal reflux disease without esophagitis UA and rflx microscopic Today K21.9 - Gastro-esophageal reflux disease without esophagitis
[2024-11-15 11:29] VITALS: BP 146/71; RESP 14; TEMP 36.9; O2SAT 99; BMI 28.2
== END 2024-11-15 11:55 | disposition home or self-care (01) ==
LOC: HO.HMCSH 11:18
PROVIDERS: PCP Internal Medicine; Visit Provider Internal Medicine
DX: Z00.00 Encounter for general adult medical examination without abnormal findings (principal); I48.91 Unspecified atrial fibrillation

== ENCOUNTER → 2024-11-15 11:18 | Outpatient (BNVA) | payer OTHER, SELFPAY | PROVIDERS: PCP Internal Medicine; Visit Provider Internal Medicine | DX: Z00.00 Encounter for general adult medical examination without abnormal findings (principal); I48.91 Unspecified atrial fibrillation; K21.9 Gastro-esophageal reflux disease without esophagitis | CPT/HCPCS: 99386 ==